=== PATIENT | female | born 1975 ===

== ENCOUNTER 2018-12-09 07:00 | Day surgery (SDC) | payer OTHER ==
[2018-12-09] MEDS ORDERED: PERCOCET 5-3251 EACH PO (12:59)
[2018-12-09] MEDS ORDERED: RECTICARE30 GM TOP (12:59)
== END 2018-12-09 13:00 | disposition home or self-care (01) ==
LOC: CIR.AMB 07:00
DX: K60.3 Anal fistula (principal)

== ENCOUNTER 2019-02-07 05:00 | Day surgery (SDC) | payer OTHER ==
[~2019-02-07 05:00] MED LIST: PERCOCET 5-3251 EACH PO; RECTICARE30 GM TOP
[2019-02-07] MEDS ORDERED: PERCOCET 5-3251 EACH PO (08:27)
[2019-02-07] MEDS ORDERED: RECTICARE30 GM TOP (08:28)
== END 2019-02-07 14:50 | disposition home or self-care (01) ==
LOC: CIR.AMB 05:00
DX: K60.3 Anal fistula (principal)